=== PATIENT | female | born 1960 | race Caucasian/White ===

== ENCOUNTER 2020-03-23 23:16 | Emergency (ER) | payer BC ==
[~2020-03-23] VITALS: Ht 162.6 cm; Wt 80.7 kg
[2020-03-23 23:30] VITALS: BP_SYST 117
[2020-03-23] MEDS ORDERED: ADENOSINE 6MG/2ML VIAL IVP ONE (23:30)
--- NOTE | 2020-03-23 23:30 | NUR ---
Placed in room 3 . 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 To gown for exam. Side rails up. Report given to WILFREDO SHIPLEY.
--- NOTE | 2020-03-23 23:32 | NUR ---
Patient complaining of rapid heart rate starting 1 hour ago with chest pain. Patient report mild shortness of breath but able to speak full sentences. HR 216. Hx of SVT. No other complaints/injuries per patient or as noted. Will continue to monitor.
--- NOTE | 2020-03-23 23:35 | NUR ---
ER at bedside examining patient.
--- NOTE | 2020-03-23 23:40 | NUR ---
HR 216 bpm BP 119/88. administered adenosine 6mg IVP Patient converted. HR now 108 BPM BP 135/77. Patient tolerated well. Will continue to monitor.
[2020-03-24 00:02] VITALS: BP_SYST 130
--- NOTE | 2020-03-24 00:02 | NUR ---
Patient given written and verbal discharge instructions and verbalizes understanding. ER MD discussed with patient the results and treatment provided. Patient in stable condition. ID arm band removed. IV catheter removed intact and dressing applied, no active bleeding. Rx of cardizem given. Patient educated on pain management and to follow up with PMD. Pain Scale 0/10 Opportunity for questions provided and answered. Medication side effect fact sheet provided.
== END 2020-03-24 00:02 | disposition home or self-care (01) ==
LOC: SED 23:16
DX: I47.1 Supraventricular tachycardia (principal); R07.89 Other chest pain; Z88.0 Allergy status to penicillin
CPT/HCPCS: 93005; 96374; 99291; J0153

== ENCOUNTER 2021-11-24 02:56 | Emergency (ER) | payer BC ==
[~2021-11-24] VITALS: Ht 162.6 cm; Wt 81.6 kg
[2021-11-24 02:56] VITALS: BP_SYST 128
[2021-11-24] MEDS ORDERED: ADENOSINE 6MG/2ML VIAL ONE (03:28)
[2021-11-24] MEDS ORDERED: ADENOSINE 6MG/2ML VIAL IVP ONE (03:45)
[2021-11-24] MEDS ORDERED: NACL 0.9% 1,000 ML IV ONE (04:30)
[2021-11-24 05:08] LABS: ALBUMIN 4.3 g/dL (3.4-4.8); CALCIUM 8.4 mg/dL (8.4-11.0); CREATININE 1.02 mg/dL (0.55-1.30); POTASSIUM 3.6 mmol/L (3.5-5.1); TOTAL BILIRUBIN 1.2 mg/dL (0.0-1.0)
[2021-11-24 05:12] LABS: BASOPHILS # (AUTO) 0.1 K/uL (0.0-0.2); BASOPHILS % (AUTO) 0.6 % (0.0-2.0); EOSINOPHILS # (AUTO) 0.4 K/uL (0.0-0.4); EOSINOPHILS % (AUTO) 2.2 % (0.0-4.0); HEMATOCRIT 42.8 % (36-48); HEMOGLOBIN 14.4 g/dL (12.0-16.0); LYMPHOCYTES # (AUTO) 2.2 K/uL (1.0-5.5); LYMPHOCYTES % (AUTO) 13.2 % (20.5-51.5); MEAN CORPUSCULAR HEMOGLOBIN 31 pg (27-31); MEAN CORPUSCULAR HGB CONC 34 % (32-36); MEAN CORPUSCULAR VOLUME 91 fL (79.0-98.0); MONOCYTES # (AUTO) 0.9 K/uL (0.0-1.0); MONOCYTES % (AUTO) 5.6 % (1.7-9.3); NEUTROPHILS # (AUTO) 12.8 K/uL (1.8-7.7); NEUTROPHILS % (AUTO) 78.4 % (40.0-70.0); PLATELET COUNT (AUTO) 319 K/uL (130-430); RED CELL DISTRIBUTION WIDTH 13.1 % (9.0-15.0); WHITE BLOOD COUNT (AUTO) 16.4 K/uL (4.8-10.8)
[2021-11-24 05:48] VITALS: BP_SYST 98
== END 2021-11-24 05:48 | disposition home or self-care (01) ==
LOC: SED 02:56
DX: I47.1 Supraventricular tachycardia (principal); Z88.0 Allergy status to penicillin
CPT/HCPCS: 36415; 80053; 83735; 85025; 93005; 96374; 99291; J0153